=== PATIENT | female | born 2000 | race African-American/Black ===

== ENCOUNTER 2019-01-05 16:26 | Inpatient (IN) | payer MEDICAID, OTHER | END 2019-01-06 11:23 | disposition left against medical advice (07) | LOC: TELE-WESTW 19:48 → ER 16:26 → TELE 18:02 → TELE-WESTW 19:53 | DX: G44.40 Drug-induced headache, not elsewhere classified, not intractable (principal); D64.9 Anemia, unspecified ==

== ENCOUNTER 2020-04-15 16:37 | Emergency (ER) | payer MEDICAID ==
[~2020-04-15] VITALS: Ht 154.9 cm; Wt 61.7 kg
[2020-04-15 18:50] VITALS: BP 113/69
== END 2020-04-15 19:01 | disposition home or self-care (01) ==
LOC: ER 16:37
DX: O26.892 Other specified pregnancy related conditions, second trimester (principal); R10.9 Unspecified abdominal pain; E86.0 Dehydration; Z3A.18 18 weeks gestation of pregnancy
CPT/HCPCS: 36415; 76805; 84702

== ENCOUNTER 2020-08-01 18:19 | Observation (INO) | payer MEDICAID ==
[~2020-08-01] VITALS: Ht 160 cm; Wt 56.7 kg
[2020-08-01 20:40] LABS: Alcohol, Urine < 3.0 mg/dL (0-10); Barbiturate Scree,Urine NEGATIVE (NEGATIVE); Benzodiazephine Screen, Urine NEGATIVE (NEGATIVE); Cannabinoid Screen, Urine POSITIVE (NEGATIVE); Cocaine Screen, Urine NEGATIVE (NEGATIVE); Opiate Scree,Urine NEGATIVE (NEGATIVE); Phencyclidine Screen, Urine NEGATIVE (NEGATIVE)
[2020-08-01 20:48] LABS: Amphetamine Screen, Urine NEGATIVE (NEGATIVE)
== END 2020-08-01 19:37 | disposition home or self-care (01) ==
LOC: LDRP 18:19 → UNDOADMOB 18:19 → LDRP 18:46 → UNDODISOB 19:37
PROVIDERS: ADMIT Specialist; ATTEND Specialist
DX: O9A.213 Injury, poisoning and certain other consequences of external causes complicating pregnancy, third trimester (principal); Z3A.34 34 weeks gestation of pregnancy; V89.2XXA Person injured in unspecified motor-vehicle accident, traffic, initial encounter; Y93.89 Activity, other specified; Y92.410 Unspecified street and highway as the place of occurrence of the external cause
CPT/HCPCS: 59025; 76818; 80307; 81002; 82948; 82962; G0378

== ENCOUNTER 2020-08-25 08:27 | Observation (INO) | payer MEDICAID ==
[~2020-08-25] VITALS: Ht 154.9 cm; Wt 64.4 kg
[2020-08-25] MEDS ORDERED: LACTATED RINGER'S 1,000 ML IV ONE (09:00)
== END 2020-08-25 12:35 | disposition home or self-care (01) ==
LOC: LDRP 08:27
PROVIDERS: ADMIT Specialist; ATTEND Specialist
DX: O26.893 Other specified pregnancy related conditions, third trimester (principal); R19.7 Diarrhea, unspecified; O30.003 Twin pregnancy, unspecified number of placenta and unspecified number of amniotic sacs, third trimester; O62.9 Abnormality of forces of labor, unspecified; Z3A.37 37 weeks gestation of pregnancy
CPT/HCPCS: 59025; 81002; 96360; 96361; G0378

== ENCOUNTER 2020-08-25 21:30 | Inpatient (IN) | payer MEDICAID ==
[~2020-08-25] VITALS: Ht 154.9 cm; Wt 64.4 kg
[2020-08-25] MEDS ORDERED: DERMOPLAST 60ML BOTTLE TOP PRN (21:45)
[2020-08-25] MEDS ORDERED: PHISODERM TOP SOLN 240ML BTL TOP PRN (21:45)
[2020-08-25] MEDS ORDERED: LACTATED RINGER'S 1,000 ML IV SCH (21:45)
[2020-08-25] MEDS ORDERED: WITCH HAZEL-GLYCERIN PAD TOP PRN (21:45)
[2020-08-25] MEDS ORDERED: LIDOCAINE 2%HCL (LOCAL ANESTH.) INJ 20ML MDV IJ ONE (21:45)
[2020-08-25] MEDS ORDERED: BUTORPHANOL TARTRATE 2 MG/1 ML VIAL IV PRN (21:45)
[2020-08-25] MEDS ORDERED: LACT. RINGERS/OXYTOCIN 20UNITS 1,000 ML IV ONE (22:00)
[2020-08-25] MEDS ORDERED: PENICILLIN G POT 5MIL/D5 50ML 50 ML IV ONE ×2 (22:00→22:01)
[2020-08-25 22:39] LABS: Basophils # (auto) 0 10 ^3/uL (0-0.2); Eosinophils # (auto) 0 10 ^3/uL (0-0.8); Eosinophils % (auto) 0.1 % (0.0-7.0); Mean Corpuscular Volume 66.9 fL (80.0-100.0); Neutrophils # (auto) 6.1 10 ^3/uL (1.6-8.6); Nucleated Red Blood Cells % 0.2 %; Red Cell Distribution Width 16.6 % (11.8-14.3)
[2020-08-25 22:41] LABS: Basophils % (auto) 0.3 % (0.0-2.0); Hematocrit 23.9 % (36.0-46.0); Lymphocytes # (auto) 0.9 10 ^3/uL (0.4-5.4); Lymphocytes % (auto) 11.6 % (10.0-50.0); Mean Corpuscular Hemoglobin 22.4 pg (28.0-32.0); Mean Corpuscular Hgb Conc. 33.4 g/dL (32.0-36.0); Monocytes # (auto) 0.8 10 ^3/uL (0-1.3); Monocytes % (auto) 10.3 % (0.0-12.0); Neutrophils % (auto) 77.7 % (37.0-80.0); Platelet Count (auto) 186 10^3/uL (140-450); Red Blood Cells 3.57 10^6/uL (4.0-5.20); White Blood Cell 7.9 10^3/uL (4.4-10.8)
[2020-08-25 22:57] LABS: Albumin 2.3 g/dL (3.4-5.0); BUN/Creatinine Ratio 10.6; Calcium 7.9 mg/dL (8.5-10.1); Potassium 3.6 mmol/L (3.5-5.1)
[2020-08-25 23:00] LABS: Bilirubin, Total 0.3 mg/dL (0.2-1.0); Total Protein 6.1 g/dL (6.4-8.2)
[2020-08-25 23:03] LABS: INR 0.95 (0.9-1.15); Partial Thromboplastin Time 26.5 sec (23.0-31.2)
[2020-08-26] VITALS (7 sets, daily range): BP systolic 104–123; BP diastolic 57–72
[2020-08-26 00:25] LABS: Urine Bacteria FEW /hpf (None Seen); Urine Blood TRACE /uL (Negative); Urine Mucus FEW (None Seen); Urine Specific Gravity 1.027 (1.001-1.035); Urine WBC 1 /hpf (0 - 5)
[2020-08-26 00:35] LABS: Amphetamine Screen, Urine NEGATIVE (NEGATIVE); Barbiturate Scree,Urine NEGATIVE (NEGATIVE); Benzodiazephine Screen, Urine NEGATIVE (NEGATIVE); Cannabinoid Screen, Urine POSITIVE (NEGATIVE); Cocaine Screen, Urine NEGATIVE (NEGATIVE); Opiate Scree,Urine NEGATIVE (NEGATIVE); Phencyclidine Screen, Urine NEGATIVE (NEGATIVE)
[2020-08-26] MEDS ORDERED: ACETAMINOPHEN 325 MG TAB PO PRN (00:45)
[2020-08-26] MEDS: IBUPROFEN 600 MG TAB PO PRN ×4 (01:24→19:57)
[2020-08-26] MEDS ORDERED: LOPERAMIDE 2 mg/15ml ORAL soln GT PRN (18:45)
[2020-08-27 03:30] VITALS: BP 118/80
[2020-08-27] MEDS: IBUPROFEN 600 MG TAB PO PRN ×2 (03:50→07:47)
[2020-08-27 05:12] LABS: RPR Non Reactive (Non Reactive)
[2020-08-27 07:00] VITALS: BP 115/61
[2020-08-27 11:00] VITALS: BP 110/69
[2020-08-27 15:06] VITALS: BP 113/80
== END 2020-08-27 17:25 | disposition home or self-care (01) | DRG 560 ==
LOC: LDRP 21:30 → OBSVTOIN 21:40
PROVIDERS: ADMIT Specialist; ATTEND Specialist
PROC: 10E0XZZ Delivery of Products of Conception, External Approach (ICD-10-PCS; principal; 2020-08-25)
DX: O99.320 Drug use complicating pregnancy, unspecified trimester (principal); Z37.0 Single live birth; Z3A.37 37 weeks gestation of pregnancy; Z20.828 Contact with and (suspected) exposure to other viral communicable diseases; F12.90 Cannabis use, unspecified, uncomplicated
CPT/HCPCS: 36415; 59025; 59409; 80053; 80307; 81001; 85025; 85610; 85730; 86592; 86850; 86900; 86901; 87426; 94760; 96360; 96361; 96365; 96366; 96374; G0378; J2540; J2590

== ENCOUNTER 2021-05-25 10:31 | Emergency (ER) | payer MEDICAID ==
[~2021-05-25] VITALS: Ht 162.6 cm; Wt 57.2 kg
[2021-05-25 10:31] VITALS: BP 148/64
== END 2021-05-25 12:02 | disposition left against medical advice (07) ==
LOC: ER 10:31
DX: R68.83 Chills (without fever) (principal); Z53.21 Procedure and treatment not carried out due to patient leaving prior to being seen by health care provider

== ENCOUNTER 2021-10-10 12:01 | Emergency (ER) | payer MEDICAID ==
[~2021-10-10] VITALS: Ht 157.5 cm; Wt 60.8 kg
[2021-10-10 12:34] VITALS: BP 131/59
== END 2021-10-10 14:23 | disposition home or self-care (01) ==
LOC: ER 12:01
DX: J02.8 Acute pharyngitis due to other specified organisms (principal); B97.89 Other viral agents as the cause of diseases classified elsewhere; Z20.822 Contact with and (suspected) exposure to COVID-19
CPT/HCPCS: 36415; 87426

== ENCOUNTER 2024-02-03 11:34 | Observation (INO) | payer MEDICAID ==
[2024-02-03 13:32] LABS: Basophils % (auto) 0.5 % (0.0-2.0); Eosinophils # (auto) 0.1 10 ^3/uL (0-0.8); Eosinophils % (auto) 1.5 % (0.0-7.0); Hematocrit 29.4 % (36.0-46.0); Hemoglobin 9.3 g/dL (12.2-16.2); Mean Corpuscular Hemoglobin 23.7 pg (28.0-32.0); Red Blood Cells 3.92 10^6/uL (4.0-5.20)
[2024-02-03 13:33] LABS: Basophils # (auto) 0 10 ^3/uL (0-0.2); Lymphocytes # (auto) 1.7 10 ^3/uL (0.4-5.4); Lymphocytes % (auto) 17.5 % (10.0-50.0); Mean Corpuscular Hgb Conc. 31.6 g/dL (32.0-36.0); Mean Corpuscular Volume 75.2 fL (80.0-100.0); Monocytes # (auto) 0.6 10 ^3/uL (0-1.3); Monocytes % (auto) 6.3 % (0.0-12.0); Neutrophils % (auto) 74.2 % (37.0-80.0); Red Cell Distribution Width 14.3 % (11.8-14.3); White Blood Cell 9.4 10^3/uL (4.4-10.8)
[2024-02-03 13:47] LABS: Albumin 4.1 g/dL (3.2-4.8); Alkaline Phosphatase 87 U/L (46-116); Anion Gap 8 (5-15); Aspartate Aminotransferase 22 U/L (13-40); Calcium 8.9 mg/dL (8.5-10.1); Carbon Dioxide 22 mmol/L (20-30); Chloride 106 mmol/L (98-107); Glucose 70 mg/dL (74-106); Potassium 3.5 mmol/L (3.5-5.1); Sodium 136 mmol/L (136-145)
[2024-02-03 13:48] LABS: Bilirubin, Total 0.4 mg/dL (0.2-1.0)
[2024-02-03 13:49] LABS: Alanine Aminotransferase < 9 U/L (7-40); BUN/Creatinine Ratio 9.3 (10.0-20.0); Blood Urea Nitrogen < 5 mg/dL (9-23)
[2024-02-03 13:55] LABS: Partial Thromboplastin Time 23.9 SEC (24.5-34.5); Prothrombin Time 10.6 sec (9.3-11.8)
[2024-02-03 14:00] LABS: Urine Blood Negative /uL (Negative); Urine Clarity Ex.Turbid (Clear); Urine Color Colorless (Yellow); Urine Hyaline Cast FEW /lpf (0 - 2); Urine Mucus FEW (None Seen); Urine Protein, UAD TRACE (Negative); Urine Specific Gravity 1.017 (1.001-1.035); Urine Urobilinogen Normal (Negative); Urine WBC 10 /hpf (0 - 5); Urine pH 8.5 (5.0-9.0)
[2024-02-03 14:06] LABS: Amphetamine Screen, Urine Neg (NEGATIVE); Barbiturate Scree,Urine Neg (NEGATIVE); Benzodiazephine Screen, Urine Neg (NEGATIVE); Cannabinoid Screen, Urine Pos (NEGATIVE); Cocaine Screen, Urine Neg (NEGATIVE); Opiate Scree,Urine Neg (NEGATIVE); Phencyclidine Screen, Urine Neg (NEGATIVE); Urine Budding Yeast FEW /hpf (None Seen); Urine Hyphae Yeast MANY /hpf
[2024-02-03 14:07] LABS: Urine Bacteria MODERATE /hpf (None Seen)
[2024-02-04 08:06] LABS: RPR Non Reactive (Non Reactive)
[2024-02-05 05:06] LABS: Chlamydia Trachomatis, NAA Negative (Negative); Neisseria gonorrhoeae, NAA Negative (Negative)
[2024-02-07 04:06] LABS: Rubella Antibodies, IgG 1.97 index (Immune >0.99)
== END 2024-02-03 14:00 | disposition home or self-care (01) ==
LOC: UNDOADMOB 11:34 → LDRP 11:34
PROVIDERS: ADMIT Obstetrics & Gynecology; ATTEND Obstetrics & Gynecology
DX: O26.893 Other specified pregnancy related conditions, third trimester (principal); R10.2 Pelvic and perineal pain; Z3A.31 31 weeks gestation of pregnancy
CPT/HCPCS: 36415; 59025; 76805; 76817; 80053; 80307; 81001; 81002; 85025; 85610; 85730; 86592; 86703; 86762; 86803; 87340; 87491; 87591; G0378

== ENCOUNTER 2024-04-16 08:49 | Inpatient (IN) | payer MEDICAID ==
[~2024-04-16] VITALS: Ht 160 cm; Wt 63.5 kg
[2024-04-16] MEDS ORDERED: LIDOCAINE 2%HCL (LOCAL ANESTH.) INJ 20ML MDV IJ PRN (09:00)
[2024-04-16] MEDS ORDERED: BUTORPHANOL TARTRATE 2 MG/1 ML VIAL IV PRN ×2 (09:00)
[2024-04-16] MEDS ORDERED: LACT. RINGERS/OXYTOCIN 20UNITS 1,000 ML IV ONE (09:00)
[2024-04-16] MEDS: PENICILLIN G POT 5MIL/D5 50ML 50 ML IV ONE (10:46)
[2024-04-16 10:47] LABS: Eosinophils # (auto) 0 10 ^3/uL (0-0.8); Lymphocytes # (auto) 1.2 10 ^3/uL (0.4-5.4); Monocytes # (auto) 0.4 10 ^3/uL (0-1.3); White Blood Cell 10.1 10^3/uL (4.4-10.8)
[2024-04-16] MEDS: IBUPROFEN 600 MG TAB PO PRN (10:47)
[2024-04-16] MEDS: LACT. RINGERS/OXYTOCIN 20UNITS 500 ML IV ONE ×2 (10:49)
[2024-04-16] MEDS: WITCH HAZEL-GLYCERIN PAD TOP PRN (10:50)
[2024-04-16] MEDS: DERMOPLAST 60ML BOTTLE TOP PRN (10:51)
[2024-04-16] MEDS: PHISODERM TOP SOLN 240ML BTL TOP PRN (10:51)
[2024-04-16 11:00] LABS: INR 0.93 (0.9-1.15); Partial Thromboplastin Time 23.9 SEC (24.5-34.5); Prothrombin Time 9.9 sec (9.3-11.8)
[2024-04-16 11:01] LABS: Basophils # (auto) 0 10 ^3/uL (0-0.2); Basophils % (auto) 0.3 % (0.0-2.0); Eosinophils % (auto) 0.5 % (0.0-7.0); Hematocrit 26.3 % (36.0-46.0); Hemoglobin 8.6 g/dL (12.2-16.2); Lymphocytes % (auto) 11.5 % (10.0-50.0); Mean Corpuscular Hemoglobin 21.5 pg (28.0-32.0); Mean Corpuscular Hgb Conc. 32.5 g/dL (32.0-36.0); Mean Corpuscular Volume 66.2 fL (80.0-100.0); Monocytes % (auto) 4.2 % (0.0-12.0); Neutrophils # (auto) 8.4 10 ^3/uL (1.6-8.6); Neutrophils % (auto) 83.5 % (37.0-80.0); Red Blood Cells 3.97 10^6/uL (4.0-5.20); Red Cell Distribution Width 17.5 % (11.8-14.3)
[2024-04-16 11:02] LABS: Albumin 3.2 g/dL (3.2-4.8); Alkaline Phosphatase 170 U/L (46-116); Anion Gap 8 (5-15); Aspartate Aminotransferase 13 U/L (13-40); Bilirubin, Total 0.4 mg/dL (0.2-1.0); Calcium 8.2 mg/dL (8.7-10.4); Carbon Dioxide 22 mmol/L (20-30); Chloride 105 mmol/L (98-107); Glucose 72 mg/dL (74-106); Potassium 3.3 mmol/L (3.5-5.1); Sodium 135 mmol/L (136-145)
[2024-04-16 11:03] LABS: Total Protein 5.6 g/dL (5.7-8.2)
[2024-04-16 11:06] LABS: Alanine Aminotransferase < 9 U/L (7-40); BUN/Creatinine Ratio 9.1 (10.0-20.0); Blood Urea Nitrogen < 5 mg/dL (9-23)
[2024-04-16 12:35] LABS: Hemoglobin 8.6 g/dL (12.2-16.2)
[2024-04-16 12:38] VITALS: PULSE 66; RESP 18; O2SAT 100
[2024-04-16 12:38] LABS: Hematocrit 27.7 % (36.0-46.0)
[2024-04-16] MEDS: LACTATED RINGER'S 1,000 ML IV SCH (12:43)
[2024-04-16] MEDS ORDERED: PENICILLIN G POTASSIUM 2,500,000 UNITS in D5W 5% 50 ML IV SCH (13:00)
[2024-04-16] MEDS: ACETAMINOPHEN 325 MG TAB PO PRN (13:31)
[2024-04-16 15:15] VITALS: BP 128/61; PULSE 81; RESP 18; TEMP 98.8; O2SAT 98
[2024-04-16] MEDS: METHYLERGONOVINE MALEATE 0.2 MG/ML AMP IM ONE (18:15)
[2024-04-16 19:00] VITALS: BP 124/66; PULSE 79; RESP 18; TEMP 99.6; O2SAT 100
[2024-04-16 20:24] LABS: Hemoglobin 8.2 g/dL (12.2-16.2)
[2024-04-16 20:25] LABS: Hematocrit 25.9 % (36.0-46.0)
[2024-04-16] MEDS: POTASSIUM CHL 20 Meq TABLET PO SCH (22:02)
[2024-04-16] MEDS: DOCUSATE SOD 100 MG CAP PO SCH (22:03)
[2024-04-16 23:00] VITALS: BP 126/75; PULSE 69; RESP 16; TEMP 98.2; O2SAT 98
[2024-04-17 03:17] VITALS: RESP 14
[2024-04-17 05:08] LABS: Basophils # (auto) 0.1 10 ^3/uL (0-0.2); Eosinophils # (auto) 0.1 10 ^3/uL (0-0.8); Lymphocytes # (auto) 2.3 10 ^3/uL (0.4-5.4); Monocytes # (auto) 0.8 10 ^3/uL (0-1.3); Nucleated Red Blood Cells % 0.1 %
[2024-04-17 05:08] LABS: Rubella Antibodies, IgG 1.56 index (Immune >0.99)
[2024-04-17 05:10] LABS: Basophils % (auto) 0.5 % (0.0-2.0); Eosinophils % (auto) 1.1 % (0.0-7.0); Hematocrit 24.3 % (36.0-46.0); Hemoglobin 7.7 g/dL (12.2-16.2); Lymphocytes % (auto) 20.8 % (10.0-50.0); Mean Corpuscular Hemoglobin 20.9 pg (28.0-32.0); Mean Corpuscular Hgb Conc. 31.6 g/dL (32.0-36.0); Mean Corpuscular Volume 66.1 fL (80.0-100.0); Monocytes % (auto) 7.2 % (0.0-12.0); Neutrophils # (auto) 7.9 10 ^3/uL (1.6-8.6); Neutrophils % (auto) 70.4 % (37.0-80.0); Red Blood Cells 3.67 10^6/uL (4.0-5.20); Red Cell Distribution Width 17.3 % (11.8-14.3); White Blood Cell 11.2 10^3/uL (4.4-10.8)
[2024-04-17 05:20] LABS: Chloride 108 mmol/L (98-107); Potassium 4.4 mmol/L (3.5-5.1); Sodium 136 mmol/L (136-145)
[2024-04-17 05:21] LABS: Anion Gap 5 (5-15); Calcium 8.5 mg/dL (8.7-10.4); Carbon Dioxide 23 mmol/L (20-30)
[2024-04-17 05:26] LABS: Glucose 73 mg/dL (74-106)
[2024-04-17 05:28] LABS: BUN/Creatinine Ratio 8.2 (10.0-20.0); Blood Urea Nitrogen < 5 mg/dL (9-23)
[2024-04-17 07:06] VITALS: BP 130/81; PULSE 69; RESP 18; TEMP 98; O2SAT 98
[2024-04-17 07:07] LABS: RPR Non Reactive (Non Reactive)
[2024-04-17] MEDS ORDERED: IBU600T PO (07:20)
[2024-04-17 10:56] VITALS: BP 125/87; PULSE 71; RESP 17; TEMP 97.6; O2SAT 100
[2024-04-18 19:06] LABS: Treponema pallidum Ab (FTA-Ab) Non Reactive (Non Reactive)
== END 2024-04-17 14:18 | disposition home or self-care (01) | DRG 560 ==
LOC: LDRP 08:49 → NUR 12:00 → LDRP 04-17 01:31
PROVIDERS: ADMIT Obstetrics & Gynecology; ATTEND Obstetrics & Gynecology
PROC: 10E0XZZ Delivery of Products of Conception, External Approach (ICD-10-PCS; principal; 2024-04-16)
PROC: 0HQ9XZZ Repair Perineum Skin, External Approach (ICD-10-PCS; 2024-04-16)
DX: O99.02 Anemia complicating childbirth (principal); Z37.0 Single live birth; O72.1 Other immediate postpartum hemorrhage; O70.0 First degree perineal laceration during delivery; Z3A.37 37 weeks gestation of pregnancy; R71.0 Precipitous drop in hematocrit
CPT/HCPCS: 36415; 59025; 80048; 80053; 85014; 85018; 85025; 85610; 85730; 86592; 86703; 86762; 86803; 86850; 86900; 86901; 86920; 87340; 94760; 96360; 96365; 96366; J2590; J7060

== ENCOUNTER 2025-09-23 18:42 | Observation (INO) | payer MEDICAID ==
[~2025-09-23] VITALS: Ht 154.9 cm; Wt 62.6 kg
[~2025-09-23 18:42] MED LIST: IBU600T PO
[2025-09-23] MEDS: LACTATED RINGER'S 1,000 ML IV ONE (19:00)
[2025-09-23] MEDS ORDERED: NIFE10CA52 PO ×2 (20:49→21:18)
[2025-09-23] MEDS ORDERED: PROG200C21 PO ×2 (20:49→21:18)
[2025-09-23] MEDS: NIFEdipine 10 MG CAP PO STA (20:57)
--- NOTE | 2025-09-23 21:13 | DVHDS2 ---
Physician Discharge Progress N Final Diagnosis: PTL Operations or Procedures: Operations or Procedures S: 25yo IUP@20.4wks presents to OB triage with c/o lower abdominal cramping with pain level 8/10. Pt reports only drinking two 16oz water bottles today. +FM, denies VB/LOF. PNC with Dr. Rascon, uncomplicated thus far. 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 O: VSS FHR 150 TOCO: no UCs 1L LR IV bolus given Procardia 10mg PO given A: 25yo IUP@20.4wks PTL P: D/C home Dr. Rascon consulted, Rx sent for procardia and progesterone Start pelvic rest and sexual intercourse Light duty work note given to not lift anything heavier than 10 lbs. f/u with Dr. Rascon as scheduled on 10/02/25 Condition on Discharge: Stable Disposition: Home Discharge Instructions: Diet: Regular Activity: See Comment Activity comment: pelvic rest Medications: see med list Follow Up Care: Specialist: f/u with Dr. Rascon as scheduled on 10/02/25 Discharge Statement: "Patient was advised to return to the ER or call 911 if any headaches, dizziness, shortness of breath, chest pain, abdominal pain, bleeding, fevers, or worsening of medical condition. Patient was counseled about treatment plan, medications, possible side effects, patientverbalized understanding. All questions were answered to the best of my ability. This discharge took greater then 30 minutes in planning, reviewing documentation, counseling the patient, and discussing with other team members." Visit Coding OBGYN Date of Service: Sep 23, 2025 Billing Provider: ESTIVEN BEARD CNM [employer]EARCH EXECUTIVE Common Visit Codes: 81205-[id number] OBS CARE (HIGH) ESTIVEN BEARD CNM Sep 23, 2025 21:13
--- NOTE | 2025-09-23 21:23 | DVH ---
[facility] LIMITED OBSTETRICAL ULTRASOUND HISTORY: cervical length. EGA 20 weeks 4 days. COMPARISON: US OB ULTRASOUND COMP GTR 14 WKS on DOS: 02/03/24 TECHNIQUE: Transabdominal imaging of the pelvis. FINDINGS: : Obrien . MATERNAL STRUCTURES: Uterus: Within normal limits. There is lower uterine segment myometrial contraction during the exam ( kissing contractions ). Cervix: 3.85 cm and closed Right ovary: Not seen Left ovary: Not seen GENERAL EVALUATION: Cardiac activity: 136 beats per minute movements: Present. Presentation: Cephalic. IMPRESSION: Single live intrauterine gestation. Cervical length 3.85 cm is within normal limits.
== END 2025-09-23 21:43 | disposition home or self-care (01) ==
LOC: LDRP 18:42
PROVIDERS: ADMIT Obstetrics & Gynecology; ATTEND Obstetrics & Gynecology
DX: O60.02 Preterm labor without delivery, second trimester (principal); Z3A.20 20 weeks gestation of pregnancy; Z98.890 Other specified postprocedural states
CPT/HCPCS: 59025; 76815; 81002; 94760; 96360; 96361; A4649; G0378

== ENCOUNTER 2025-10-01 13:34 | Outpatient (CLI) | payer MEDICAID ==
[~2025-10-01 13:34] MED LIST changes: -IBU600T PO; +NIFE10CA52 PO; +PROG200C21 PO
[2025-10-01 14:17] LABS: Hemoglobin 9.8 g/dL (12.2-16.2); Nucleated Red Blood Cells % 0.1 %
[2025-10-01 14:19] LABS: Hematocrit 30.6 % (36.0-46.0); Mean Corpuscular Hemoglobin 23.2 pg (28.0-32.0); Mean Corpuscular Volume 72.1 fL (80.0-100.0)
[2025-10-01 15:15] LABS: Opiate Scree,Urine Neg (NEGATIVE)
[2025-10-01 15:16] LABS: Amphetamine Screen, Urine Neg (NEGATIVE); Barbiturate Scree,Urine Neg (NEGATIVE); Benzodiazephine Screen, Urine Neg (NEGATIVE); Cannabinoid Screen, Urine Pos (NEGATIVE); Cocaine Screen, Urine Neg (NEGATIVE); Phencyclidine Screen, Urine Neg (NEGATIVE)
[2025-10-04 06:49] LABS: Chlamydia Trachomatis, NAA Negative (Negative); Neisseria gonorrhoeae, NAA Negative (Negative)
== END 2025-10-01 17:00 | disposition home or self-care (01) ==
LOC: LAB 13:34
PROVIDERS: ATTEND Obstetrics & Gynecology
DX: O23.42 Unspecified infection of urinary tract in pregnancy, second trimester (principal); N39.0 Urinary tract infection, site not specified; Z11.3 Encounter for screening for infections with a predominantly sexual mode of transmission; Z20.09 Contact with and (suspected) exposure to other intestinal infectious diseases; Z31.430 Encounter of female for testing for genetic disease carrier status for procreative management; Z3A.24 24 weeks gestation of pregnancy
CPT/HCPCS: 36415; 80307; 83036; 84144; 84702; 85025; 86480; 86703; 86762; 86780; 86787; 86850; 86900; 86901; 87086; 87340